=== PATIENT | female | born 1975 | race African-American/Black ===

== ENCOUNTER 2018-03-02 20:09 | Inpatient (IN) ==
[2018-03-02] MEDS ORDERED: Potassium Chlor 10 mEq Premix 10 MEQ/100 ML PIGGYBACK IV.SIG ONE (20:24)
[2018-03-02] MEDS ORDERED: Sod Chloride 0.9% Inj 1,000 ML IV.SIG ONE ×2 (20:26→22:04)
--- NOTE | 2018-03-02 21:06 | CT ---
EXAM DATE: 03/02/2018 8:58 PM EDT AGE/SEX: 42 years / Female INDICATIONS: Seizure with fall. CLINICAL DATA: This is the patient's initial encounter. Patient reports that signs and symptoms have been present for 1 day and indicates a pain score of 0/10. MEDICAL/SURGICAL HISTORY: . Seizures None. RADIATION DOSE: 41.51 CTDI (mGy) COMPARISON: No prior exams available for comparison. TECHNIQUE: CT of the head without contrast. Using automated exposure control and adjustment of the mA and/or kV according to patient size, radiation dose was kept as low as reasonably achievable to ob tain optimal diagnostic quality images. DICOM format image data is available electronically for revi ew and comparison. FINDINGS: Cerebrum: The ventricles are normal for age. No evidence of midline shift, mass lesion, hemorrhage or acute infarction. No extraaxial fluid collections are seen. Posterior Fossa: The cerebellum and brainstem are intact. The 4th ventricle is midline. The cerebe llopontine angle is unremarkable. Extracranial: The visualized portion of the orbits is intact. Skull: The calvaria is intact. No evidence of skull fracture. CONCLUSION: 1. Negative noncontrast CT brain. . Electronically signed by: Shan Bush MD 03/02/2018 9:05 PM EDT
--- NOTE | 2018-03-02 21:08 | CT ---
EXAM DATE: 03/02/2018 8:59 PM EDT AGE/SEX: 42 years / Female INDICATIONS: Seizure with fall. CLINICAL DATA: This is the patient's initial encounter. Patient reports that signs and symptoms have been present for 1 day and indicates a pain score of 0/10. MEDICAL/SURGICAL HISTORY: . Seizures None. RADIATION DOSE: 31.68 CTDI (mGy) COMPARISON: No prior exams available for comparison. TECHNIQUE: Contiguous axial images were obtained using helical multirow detector technique. The vol umetric data was post-processed with multiplanar reconstruction in oblique axial, sagittal, and coron al planes. Using automated exposure control and adjustment of the mA and/or kV according to patient s ize, radiation dose was kept as low as reasonably achievable to obtain optimal diagnostic quality dafne ges. DICOM format image data is available electronically for review and comparison. FINDINGS: There is straightening of the cervical lordosis. Vertebral body height is maintained. The atlantoaxia l articulation is intact. The posterior elements are in normal alignment without evidence of locked o r perched facets. Nonbridging anterior paravertebral ossification is present at C6-7. C2-3: No fracture seen. The neural foramina are patent. C3-4: No fracture seen. The neural foramina are patent. C4-5: No fracture seen. The neural foramina are patent. C5-6: No fracture seen. The neural foramina are patent. C6-7: No fracture seen. The neural foramina are patent. C7-T1: No fracture seen. The neural foramina are patent. CONCLUSION: 1. No evidence of compression deformity or spondylolisthesis. Electronically signed by: Shan Bush MD 03/02/2018 9:07 PM EDT
--- NOTE | 2018-03-02 21:19 | ED ---
HPI General Chief Complaint: Seizure Stated Complaint: Medical Time Seen by Provider: 03/02/18 20:18 Source: RN notes reviewed Mode of arrival: wheelchair Limitations: altered mental status History of Present Illness HPI Narrative: The patient is a 42-year-old female with history of seizures noncompliant with medications. Patient was seen here earlier today for seizure and refused workup left AMA. She never really made it out of the ED. Patient had another seizure in between the double doors injuring her face. She was placed in c-collar backboard and wheeled to C-pod. Was alert at time of examination but slightly confused. Not seizing. Related Data Home Medications Medication Instructions Recorded Confirmed Unable to Obtain Home Meds 03/02/18 03/02/18 Allergies Allergy/AdvReac Type Severity Reaction Status Date / Time No Known Allergies Allergy Unverified 03/02/18 18:30 Review of Systems ROS Unobtainable All other systems reviewed negative except as stated in HPI Constitutional Denies fever(s) Eyes Denies change in vision ENT Denies headache(s) and Denies nasal congestion Cardiovascular Denies chest pain Respiratory Denies dyspnea Gastrointestinal Denies abdominal pain Genitourinary Denies difficulty voiding Musculoskeletal Denies myalgias Integumentary/Breasts Denies rash Comments: Facial abrasions. One below the right nare. One linear abrasion below the right eyelid noted affecting globe. And one her forehead paramedian. No active bleeding. Neurologic Reports syncope, Denies headache(s) and Reports seizure-like activity Psychiatric Denies depression Endocrine Denies polyuria Hematologic/Lymphatic Denies easy bruising PMF Medical History Medical History Seizure (Acute) Surgical History Surgical History No history of previous surgery (Acute) Social History Social History Substance History: No History of Abuse Second Hand Smoke Exposure: No Smoking Status: Never smoker How Often Do You Have a Drink Containing Alcohol: 2 to 4 times a month Recent Travel in [facility] within the Last 8 Weeks: No Recent Out of Country Travel within the Last 8 Weeks: No Immunization History Tetanus Immunization: >5 Years Exam [facility] Head: normocephalic and signs of trauma Nose: no nasal discharge and no epistaxis Mouth: moist mucous membranes Other: C-collar in place. Abrasions on right infraorbital, below the right nares Paramedial forehead. Eyes Sclera: normal sclerae Pupils: PERRL Neck Neck: trachea midline and no JVD Resp Effort & Inspection: no use of accessory muscles Auscultation: clear to auscultation bilaterally Cardio Rate: regular rate Rhythm: regular rhythm Heart Sounds: no murmurs GI Inspection: non-distended Palpation: soft, no hepatosplenomegaly and nontender Back/Spine/Pelvis Back: no CVA tenderness Cervical Spine: No cervical ROM normal (straitened) Thoracic/Lumbar Spine: thoracic and lumbar spine normal to inspection Pelvis: no pain with anterior-posterior compression Skin General: skin not dry (warm) Other: facial abrasions discussed above Neuro General: alert and awake Cranial Nerves: other Speech: speech normal Motor: no movement abnormalities noted Extrem General: normal to inspection, no clubbing, no cyanosis and no edema Psych Mood: congruent mood Affect: normal affect Judgment: judgment good Course Reevaluation(s) Reevaluation #1: Patient states she feels much better this time she is alert and oriented. She responds to questions appropriately she is noncompliant with medications and does not remember what she takes. Time: 21:18 Reevaluation #2: Cervical spine cleared radiographically and clinically. CT was negative. No pain to palpation. Due to the abnormal EKG we will obtain troponin. Likely secondary to hypokalemia. The patient denies any chest pain or shortness of breath. Time: 22:18 Initial Documented Vital Signs Temperature 98 F 03/02/18 20:10 Pulse Rate 110 H 03/02/18 20:10 Respiratory Rate 16 03/02/18 20:10 Blood Pressure 160/119 H 03/02/18 20:10 Pulse Oximetry 100 03/02/18 20:10 Last Documented Vital Signs Temperature 98 F 03/02/18 20:10 Pulse Rate 96 H 03/02/18 23:12 Respiratory Rate 14 03/02/18 23:12 Blood Pressure 129/63 03/02/18 23:12 Pulse Oximetry 100 03/02/18 23:12 Critical Care Time Critical Care Time: Yes Total Critical Care Time: 30 Attestation: Aggregate critical care time was 30 minutes. Time to perform other separately billable procedures was not included in the critical care time. My time did not include minutes spent treating any other patients simultaneously or on activities that did not directly contribute to the patient's treatment. The services I provided to this patient were to treat and/or prevent clinically significant deterioration that could result in: permanent disability, neurologic deficits, cardiac dysrrhytmia I provided critical care services requiring my management, as noted below: Chart data review, documentation time, medication orders and management, vital sign assessments/reviewing monitor data, ordering and reviewing lab tests, ordering and interpreting/reviewing x-rays and diagnostic studies, care of the patient and discussion of the patient with the admitting physicians. Medical Decision Making MDM Narrative Medical decision making narrative: Patient with hypokalemia initially as per previous physician report started on potassium at point of care. We will also give her 500 mg of IV Keppra. Patient with recurrent seizures. Started on Keppra prophylactically. Potassium 2.8 also noted and was started replacement in the ED with IV and p.o. Hemodynamically stable. Cervical spine and CT head were negative for acute injuries. She does have a straightening of cervical lordosis from her injury. Hemodynamically stable no focal neurologic deficits. Abnormal EKG without any signs of acute ischemia. Tachycardia did improve with bolus fluids as well as potassium replacement. Troponin negative no chest pain chest x-ray unremarkable. No signs of infectious process. Lab Data Lab results reviewed: Yes I reviewed the patient's lab results. Result diagrams: 03/02/18 22:20 03/02/18 22:20 Lab Results 03/02/18 03/02/18 03/02/18 Range/Units 20:13 22:20 22:20 WBC 10.3 (4.0-11.0) th/mm3 RBC 4.50 (4.00-5.30) mil/mm3 Hgb 11.1 L (11.6-15.3) gm/dL Hct 34.0 L (35.0-46.0) % MCV 75.5 L (80.0-100.0) fL MCH 24.6 L (27.0-34.0) pg MCHC 32.5 (32.0-36.0) % RDW 22.2 H (11.6-17.2) % Plt Count 208 (150-450) th/mm3 MPV 9.6 (7.0-11.0) fL Neut % (Auto) 91.7 H (16.0-70.0) % Lymph % (Auto) 4.9 L (9.0-44.0) % [place] % (Auto) 3.1 (0.0-8.0) % Eos % (Auto) 0.0 (0.0-4.0) % Baso % (Auto) 0.3 (0.0-2.0) % Neut # (Auto) 9.4 H (1.8-7.7) th/mm3 Lymph # (Auto) 0.5 L (1.0-4.8) th/mm3 [place] # (Auto) 0.3 (0.0-0.9) th/mm3 Eos # (Auto) 0.0 (0.0-0.4) th/mm3 Baso # (Auto) 0.0 (0.0-0.2) th/mm3 WBC Differential . Differential Comment Auto diff final Sodium 136 (136-145) meq/L Potassium 2.8 L* (3.5-5.1) meq/L Chloride 95 L (98-107) meq/L Carbon Dioxide 28.1 (21.0-32.0) meq/L Anion Gap 13 (5-15) meq/L BUN 10 (7-18) mg/dL Creatinine 1.15 H (0.50-1.00) mg/dL Estimated GFR 62 L (>89) mL/min POC Glucose 167 H (68-110) mg/dl Random Glucose 112 H (74-106) mg/dL Calcium 7.7 L (8.5-10.1) mg/dL Troponin I Less than 0.02 L (0.02-0.05) ng/mL Imaging Data Radiologist's impression: Cervical Spine CT 03/02/18 20:24 CONCLUSION: 1. No evidence of compression deformity or spondylolisthesis. Chest X-Ray 03/02/18 20:24 CONCLUSION: The lungs are clear. Head CT 03/02/18 20:24 CONCLUSION: 1. Negative noncontrast CT brain. . Face CT 03/02/18 20:26 CONCLUSION: 1. No facial bone fracture seen. ECG Data Attestation: I personally reviewed and interpreted this ECG as follows: Interpretation: EKG obtained at 2154 on March 02 revealed junctional tachycardia with a rate of [address]-T wave abnormalities. Nonspecific T-wave abnormalities. Inverted T waves on V2. Q wave in inferior leads. Discharge Plan Discharge Disposition Patient Disposition: 30 Still Patient Discharge Condition Condition: Fair Discharge Details Diagnosis: Intractable seizure disorder, Acute hypokalemia, Contusion of face, Abrasion of face Physicians Team ED Provider: Raghavendra East Primary Care Provider: Primary Care Shaista Colon Attending Provider: Cande Brown Discharge Interventions Interventions: Vital Signs Last Done: 03/02/18 23:12 Status ED Status: Admitted Patient
--- NOTE | 2018-03-02 21:23 | XR ---
EXAM DATE: 03/02/2018 9:09 PM EDT AGE/SEX: 42 years / Female INDICATIONS: Trauma. Seizure. CLINICAL DATA: This is the patient's initial encounter. Patient reports that signs and symptoms have been present for 1 day and indicates a pain score of 0/10. MEDICAL/SURGICAL HISTORY: . Seizures. None. COMPARISON: No prior exams available for comparison. FINDINGS: A single AP view of the chest demonstrates the lungs to be symmetrically aerated without evidence of mass, infiltrate or effusion. The cardiomediastinal contours are unremarkable. Osseous structures a re intact. CONCLUSION: The lungs are clear. Electronically signed by: Shan Bush MD 03/02/2018 9:22 PM EDT
--- NOTE | 2018-03-02 21:23 | CT ---
EXAM DATE: 03/02/2018 8:59 PM EDT AGE/SEX: 42 years / Female INDICATIONS: Seizure with fall. CLINICAL DATA: This is the patient's initial encounter. Patient reports that signs and symptoms have been present for 1 day and indicates a pain score of 0/10. MEDICAL/SURGICAL HISTORY: . Seizures None. RADIATION DOSE: 64.19 CTDI (mGy) COMPARISON: No prior exams available for comparison. TECHNIQUE: Contiguous images in the axial and coronal planes were obtained using helical multirow de tector technique. Using automated exposure control and adjustment of the mA and/or kV according to p atient size, radiation dose was kept as low as reasonably achievable to obtain optimal diagnostic chelsie lity images. DICOM format image data is available electronically for review and comparison. FINDINGS: Orbits: The orbital and infraorbital osseous structures are intact. The retroconal structures have a normal configuration. No radiopaque foreign bodies are seen. Nasal Bone: The nasal bone and maxillary spine are intact. Zygomatic Arches: Symmetric without evidence of fracture. Sinuses: There is minimal mucosal thickening in the lower left maxillary sinus. Bilateral cecilia bul losa. Nasal Cavity: The nasal septum is intact and midline. The lacrimal ducts are intact. Soft Tissues: No radiopaque foreign bodies seen. No soft-tissue swelling is seen. Intracranial: No intracranial air seen. Cribriform Plate: Grossly intact. CONCLUSION: 1. No facial bone fracture seen. Electronically signed by: Shan Bush MD 03/02/2018 9:22 PM EDT
[2018-03-02] MEDS ORDERED: levETIRAcetam 500mg/100mL Inj 100 ML IV.SIG ONE (22:26)
[2018-03-02 23:04] LABS: Baso % (Auto) 0.3 % (0.0-2.0); Hemoglobin 11.1 gm/dL (11.6-15.3); Lymph # (Auto) 0.5 th/mm3 (1.0-4.8); Lymph % (Auto) 4.9 % (9.0-44.0); Mean Corpuscular HGB Conc 32.5 % (32.0-36.0); Mean Corpuscular Hemoglobin 24.6 pg (27.0-34.0); Mean Corpuscular Volume 75.5 fL (80.0-100.0); Mean Platelet Volume 9.6 fL (7.0-11.0); Mono # (Auto) 0.3 th/mm3 (0.0-0.9); Mono % (Auto) 3.1 % (0.0-8.0); Neut # (Auto) 9.4 th/mm3 (1.8-7.7); Neut % (Auto) 91.7 % (16.0-70.0); Platelet Count 208 th/mm3 (150-450); Red Cell Distribution Width 22.2 % (11.6-17.2); White Blood Count 10.3 th/mm3 (4.0-11.0)
[2018-03-02 23:31] LABS: Anion Gap 13 meq/L (5-15); Blood Urea Nitrogen 10 mg/dL (7-18); Calcium 7.7 mg/dL (8.5-10.1); Carbon Dioxide 28.1 meq/L (21.0-32.0); Chloride 95 meq/L (98-107); Glomerular Filtration Rate 62 mL/min (>89); Glucose,Random 112 mg/dL (74-106); Sodium 136 meq/L (136-145)
[2018-03-02 23:34] LABS: Potassium 2.8 meq/L (3.5-5.1)
[2018-03-03] MEDS ORDERED: Bisacodyl 10 MG Supp RECTAL PRN (00:42)
[2018-03-03] MEDS ORDERED: Temazepam 15 MG Capsule PO PRN (00:42)
[2018-03-03] MEDS ORDERED: Acetaminophen 325 MG Tablet PO PRN (00:42)
--- NOTE | 2018-03-03 02:59 | P.HPIM ---
History of Present Illness Primary Care Physician: No Primary Care Physician History of Present Illness: This is a 42-year-old female with a PMH of Seizure Disorder and Noncompliance who presented to the ER earlier today after seizure. Prior to having completed work up, pt's friend arrived at which time pt decided to LEAVE AMA. While walking out of the ER, pt had subsequent seizure and was brought back in from Triage. States she takes "something with a P", but is non-compliant because "I forget". Notes seizure activity 1-2 times per month. Does not follow w/ Neurology. BP 160/119, HR 110, O2 sat 100% on RA, Afebrile. CBC essentially unremarkable. K+ 2.8. Creatinine 1.15. CT Head with no acute findings. CT C- spine negative for fracture. CT Maxillofacial with no facial bone fracture. CXR negative. - Diagnosis (1) Seizure (2) Non-compliance (3) Hypokalemia Inpatient Certification: I certify that the inpatient services were ordered in accordance with Medicare regulations governing the order. This includes certification that hospital inpatient services are reasonable and necessary and in the case of services not specified as inpatient-only under 42 CFR 419.22(n), that they are appropriately provided as inpatient services in accordance to with the 2-midnight benchmark under 43 CFR 412.3(e) Estimated Total Length of Stay (Days): 2 Plans for Post Hospital Care: Home Review of Systems All other systems reviewed negative except as stated in HPI [facility] - History History Provided By: Medical Record - Medical History Medical History: Medical History (Last Reviewed 03/03/18 @ 01:08 by Raghavenrda East DO) Seizure - Surgical History Surgical History: Surgical History (Last Reviewed 03/03/18 @ 01:00 by Raghavendra East DO) No history of previous surgery - Tobacco History Second Hand Smoke Exposure: No Smoking Status: Never smoker - Alcohol History How Often Do You Have a Drink Containing Alcohol: 2 to 4 times a month - Substance Use History Substance History: No History of Abuse - Travel History Recent Travel in the [place] Within the Last 8 Weeks: No Recent Travel Out of the Country Within the Last 8 Weeks: No - Immunization History Tetanus Immunization: >5 Years Medications and Allergies Active Medications: Active Medications Acetaminophen (Tylenol) 650 mg PO Q4H PRN PRN Reason: Temp > 100.4 Al Hydroxide/Mg Hydroxide (Milk Of Magnesia Liq) 30 ml PO Q12H PRN PRN Reason: Mild Constipation Bisacodyl (Dulcolax Supp) 10 mg RECTAL DAILY PRN PRN Reason: SEVERE CONSITIPATION Levetiracetam (Keppra 500 Mg/100 Ml Premix) 100 mls @ 400 mls/hr IV.SIG Q12H SERA Sodium Chloride (Ns Inj) 1,000 mls @ 100 mls/hr IV.CONT .Q10H SERA Lactulose (Lactulose Liq) 30 ml PO DAILY PRN PRN Reason: SEVERE CONSITIPATION Lorazepam (Ativan Inj) 1 mg IV.PUSH Q5M PRN PRN Reason: SEIZURE Ondansetron HCl (Zofran Inj) 4 mg IV.PUSH Q6H PRN PRN Reason: NAUSEA OR VOMITING Senna/Docusate Sodium (Lary-Colace) 1 tab PO BID SERA Sennosides (Senokot) 17.2 mg PO Q12H PRN PRN Reason: Moderate Constipation Temazepam (Restoril) 15 mg PO HS PRN PRN Reason: INSOMNIA Allergies Allergy/AdvReac Type Severity Reaction Status Date / Time No Known Allergies Allergy Unverified 03/02/18 18:30 Home Medications Medication Instructions Recorded Confirmed Type Unable to Obtain Home Meds 03/02/18 03/02/18 History Exam Vital signs: Vital Signs 03/02/18 20:10 03/02/18 20:13 03/02/18 23:12 Temperature 98 F Pulse Rate 110 H 88 96 H Respiratory Rate 16 14 14 Blood Pressure 160/119 H 140/90 129/63 Pulse Oximetry 100 100 100 03/03/18 02:07 Temperature Pulse Rate 72 Respiratory Rate 16 Blood Pressure 128/78 Pulse Oximetry Intake & Output 03/02/18 03/02/18 03/03/18 06:59 18:59 06:59 Weight 127.006 kg Other: # Voids 2 Narrative: PE: GENERAL: Middle-aged black female in no acute distress. HEENT: PERRLA, EOMI. No scleral icterus or conjunctival pallor. No lid lag or facial droop. Periorbital superficial laceration, some facial bruising CARDIOVASCULAR: Regular rate and rhythm. No obvious murmurs to auscultation. No chest tenderness to palpation. RESPIRATORY: No obvious rhonchi or wheezing. Clear to auscultation. Breath sounds equal bilaterally. GASTROINTESTINAL: Abdomen soft, non-tender, nondistended. BS normal. MUSCULOSKELETAL: Extremities without clubbing, cyanosis, or edema. No obvious deformities. NEUROLOGICAL: Awake, alert and oriented x4. No focal neurologic deficits. Moving both upper and lower extremities spontaneously. Results - Labs CBC & Chem 7: 03/02/18 22:20 03/02/18 22:20 Labs: Short CBC 03/02/18 Range/Units 22:20 WBC 10.3 (4.0-11.0) th/mm3 Hgb 11.1 L (11.6-15.3) gm/dL Hct 34.0 L (35.0-46.0) % Plt Count 208 (150-450) th/mm3 BMP 03/02/18 22:20 Sodium 136 Potassium 2.8 L* Chloride 95 L Carbon Dioxide 28.1 BUN 10 Creatinine 1.15 H Calcium 7.7 L Cardiac Enzymes 03/02/18 Range/Units 22:20 Troponin I Less than 0.02 L (0.02-0.05) ng/mL - Imaging Impressions Cervical Spine CT 03/02/18 20:24 CONCLUSION: 1. No evidence of compression deformity or spondylolisthesis. Chest X-Ray 03/02/18 20:24 CONCLUSION: The lungs are clear. Head CT 03/02/18 20:24 CONCLUSION: 1. Negative noncontrast CT brain. . Face CT 03/02/18 20:26 CONCLUSION: 1. No facial bone fracture seen. Caprini VTE Risk Assessment Caprini VTE Risk Assessment: No/Low Risk (score <= 1) Caprini Risk Assessment Model: Point Value = 1 Point Value = 2 Point Value = 3 Point Value = 5 Age 41-60 Minor surgery BMI > 25 kg/m2 Swollen legs Varicose veins or History of unexplained or recurrent spontaneous Oral contraceptives or hormone replacement Sepsis (< 1 month) Serious lung disease, including pneumonia (< 1 month) Abnormal pulmonary function Acute myocardial infarction Congestive heart failure (< 1 month) History of inflammatory bowel disease Medical patient at bed rest Age 61-74 Arthroscopic surgery Major open surgery (> 45 min) Laparoscopic surgery (> 45 min) Malignancy Confined to bed (> 72 hours) Immobilizing plaster cast Central venous access Age >= 75 History of VTE Family history of VTE Factor V Leiden Prothrombin [id number] Lupus anticoagulant Anticardiolipin antibodies Elevated serum homocysteine Heparin-induced thrombocytopenia Other congenital or acquired thrombophilia Stroke (< 1 month) Elective arthroplasty Hip, pelvis, or leg fracture Acute spinal cord injury (< 1 month) Prophylaxis Regimen: Total Risk Factor Score Risk Level Prophylaxis Regimen 0-1 Low Early ambulation 2 Moderate Order ONE of the following: *Sequential Compression Device (SCD) *Heparin 5000 units SQ BID 3-4 Higher Order ONE of the following medications: *Heparin 5000 units SQ TID *Enoxaparin/Lovenox 40 mg SQ daily (WT < 150 kg, CrCl > 30 mL/min) *Enoxaparin/Lovenox 30 mg SQ daily (WT < 150 kg, CrCl > 10-29 mL/min) *Enoxaparin/Lovenox 30 mg SQ BID (WT < 150 kg, CrCl > 30 mL/min) AND/OR *Sequential Compression Device (SCD) 5 or more Highest Order ONE of the following medications: *Heparin 5000 units SQ TID (Preferred with Epidurals) *Enoxaparin/Lovenox 40 mg SQ daily (WT < 150 kg, CrCl > 30 mL/min) *Enoxaparin/Lovenox 30 mg SQ daily (WT < 150 kg, CrCl > 10-29 mL/min) *Enoxaparin/Lovenox 30 mg SQ BID (WT < 150 kg, CrCl > 30 mL/min) AND *Sequential Compression Device (SCD) Assessment and Plan - Assessment (1) Seizure Code(s): R56.9 - Unspecified convulsions Status: Acute (2) Non-compliance Code(s): Z91.19 - Patient's noncompliance with other medical treatment and regimen Status: Acute (3) Hypokalemia Code(s): E87.6 - Hypokalemia Status: Acute - Plan A/P: 1. Seizure: h/o Seizure Disorder, non-compliant w/ meds, seen in ER earlier today after seizure however LEFT AMA, had subsequent seizure while walking out of the ER and was brought back. CT Head/C-Spine/Maxillofacial w/ no acute fractures. Seizure Precautions, Ativan prn, IVF for hydration. Consult Neurology for further recommendations. Start Keppra. 2. Non-Compliance: pt states "I forget" w/ regards to taking medications, stressed importance of compliance. 3. Hypokalemia: K+ 2.8, s/p replacement, will recheck and replace as needed. 4. DVT Prophylaxis: SCD/Teds 5. Social work for d/c planning as needed. 6. Case discussed w/ ER physician at length, labs/records/imaging reviewed by me.
[2018-03-03] MEDS: Sod Chloride 0.9% Inj 1,000 ML IV.CONT SCH ×2 (03:02→10:04)
[2018-03-03] MEDS ORDERED: levETIRAcetam 500mg/100mL Inj 100 ML IV.SIG SCH (09:00)
[2018-03-03] MEDS ORDERED: Senna/Docusate Sodium 8.6/50 MG Tablet PO SCH (09:00)
[2018-03-03] MEDS: Potassium Chlor 20 mEq Premix 20 MEQ/100 ML PIGGYBACK IV.SIG SCH ×2 (09:31→12:23)
[2018-03-03 09:59] VITALS: O2SAT 100
[2018-03-03] MEDS ORDERED: Phenytoin Sodium 100 MG Capsule PO ONE (10:23)
--- NOTE | 2018-03-03 10:35 | P.CONNEU ---
History of Present Illness Service: Neurology Primary Care Provider: No Primary Care Physician History of Present Illness: There is a pleasant 42-year-old female from [place] visiting a friend with a known history of seizures that started June 2017. She supposed to be taking phenytoin but admits to noncompliance with medication. She is admitted for breakthrough seizure. No events overnight was put on Keppra feels well and wants to leave and go home. She is followed by primary care physician in the [place] area. No clear etiology found for seizures no family history of seizures. She states that she will get an aura of dizziness prior to the event. Denies any fever chills night sweats focal weakness visual loss headache or neck pain. Review of Systems All other systems reviewed negative except as stated in HPI [facility] - History History Provided By: Medical Record - Medical History Medical History: Medical History (Last Reviewed 03/03/18 @ 01:08 by Raghavendra East DO) Seizure - Surgical History Surgical History: Surgical History (Last Reviewed 03/03/18 @ 01:00 by Raghavendra East DO) No history of previous surgery - Tobacco History Second Hand Smoke Exposure: No Smoking Status: Never smoker - Alcohol History How Often Do You Have a Drink Containing Alcohol: 2 to 4 times a month - Substance Use History Substance History: No History of Abuse - Travel History Recent Travel in the [place] Within the Last 8 Weeks: No Recent Travel Out of the Country Within the Last 8 Weeks: No - Immunization History Tetanus Immunization: >5 Years Medications and Allergies Active Medications: Active Medications Acetaminophen (Tylenol) 650 mg PO Q4H PRN PRN Reason: Temp > 100.4 Al Hydroxide/Mg Hydroxide (Milk Of Magnmatt Liq) 30 ml PO Q12H PRN PRN Reason: Mild Constipation Bisacodyl (Dulcolax Supp) 10 mg RECTAL DAILY PRN PRN Reason: SEVERE CONSITIPATION Levetiracetam (Keppra 500 Mg/100 Ml Premix) 100 mls @ 400 mls/hr IV.SIG Q12H [facility] Last Admin: 03/03/18 10:02 Dose: 400 mls/hr Sodium Chloride (Ns Inj) 1,000 mls @ 100 mls/hr IV.CONT .Q10H [facility] Last Admin: 03/03/18 10:04 Dose: 100 mls/hr Potassium Chloride (Kcl 20 Meq Premix Inj) 20 meq in 100 mls @ 50 mls/hr IV.SIG Q2H [facility] Stop: 03/03/18 12:59 Last Admin: 03/03/18 09:31 Dose: 50 mls/hr Lactulose (Lactulose Liq) 30 ml PO DAILY PRN PRN Reason: SEVERE CONSITIPATION Lorazepam (Ativan Inj) 1 mg IV.PUSH Q5M PRN PRN Reason: SEIZURE Ondansetron HCl (Zofran Inj) 4 mg IV.PUSH Q6H PRN PRN Reason: NAUSEA OR VOMITING Phenytoin Sodium (Dilantin) 100 mg PO TID [facility] Senna/Docusate Sodium (Lary-Colace) 1 tab PO BID [facility] Last Admin: 03/03/18 09:31 Dose: Not Given Sennosides (Senokot) 17.2 mg PO Q12H PRN PRN Reason: Moderate Constipation Temazepam (Restoril) 15 mg PO HS PRN PRN Reason: INSOMNIA Allergies Allergy/AdvReac Type Severity Reaction Status Date / Time No Known Allergies Allergy Unverified 03/02/18 18:30 Home Medications Medication Instructions Recorded Confirmed Type Unable to Obtain Home Meds 03/02/18 03/02/18 History Exam Vital signs: Vital Signs 03/02/18 20:10 03/02/18 20:13 03/02/18 23:12 Temperature 98 F Pulse Rate 110 H 88 96 H Respiratory Rate 16 14 14 Blood Pressure 160/119 H 140/90 129/63 Pulse Oximetry 100 100 100 03/03/18 02:07 03/03/18 03:20 03/03/18 07:13 Temperature 98.1 F 97.6 F Pulse Rate 72 92 H 93 H Respiratory Rate 16 18 18 Blood Pressure 128/78 158/83 H 167/78 H Pulse Oximetry 98 96 03/03/18 08:00 Temperature 98.3 F Pulse Rate 87 Respiratory Rate 14 Blood Pressure 169/101 H Pulse Oximetry 100 Intake & Output 03/02/18 03/03/18 03/03/18 18:59 06:59 18:59 Intake Total 1000 / 1000 Balance 1000 / 1000 Weight 127.006 kg 127.006 kg Intake: IV 1000 / 1000 NS Inj 1,000 ML @ 100 mls/hr IV 1000 / 1000 .CONT .Q10H [facility] Rx#:[id number] Other: # Voids 2 Narrative: Awake alert oriented 3 pleasant articulate no aphasia Movements intact tongue midline no pronator drift no neglect reflex symmetric gait not assessed secondary fall risk although she says she has been ambulating without difficulty Results - Labs CBC & Chem 7: 03/02/18 22:20 03/02/18 22:20 Labs: Laboratory Results - last 24 hr 03/02/18 03/02/18 03/02/18 20:13 22:20 22:20 WBC 10.3 RBC 4.50 Hgb 11.1 L Hct 34.0 L MCV 75.5 L MCH 24.6 L MCHC 32.5 RDW 22.2 H Plt Count 208 MPV 9.6 Neut % (Auto) 91.7 H Lymph % (Auto) 4.9 L Bull[place] % (Auto) 3.1 Eos % (Auto) 0.0 Baso % (Auto) 0.3 Neut # (Auto) 9.4 H Lymph # (Auto) 0.5 L [place] # (Auto) 0.3 Eos # (Auto) 0.0 Baso # (Auto) 0.0 WBC Differential . Differential Comment Auto diff final Sodium 136 Potassium 2.8 L* Chloride 95 L Carbon Dioxide 28.1 Anion Gap 13 BUN 10 Creatinine 1.15 H Estimated GFR 62 L POC Glucose 167 H Random Glucose 112 H Calcium 7.7 L Troponin I Less than 0.02 L 03/03/18 07:55 WBC RBC Hgb Hct MCV MCH MCHC RDW Plt Count MPV Neut % (Auto) Lymph % (Auto) [place] % (Auto) Eos % (Auto) Baso % (Auto) Neut # (Auto) Lymph # (Auto) [place] # (Auto) Eos # (Auto) Baso # (Auto) WBC Differential Differential Comment Sodium Potassium Chloride Carbon Dioxide Anion Gap BUN Creatinine Estimated GFR POC Glucose Random Glucose Calcium Troponin I Less than 0.02 L - Imaging Impressions Cervical Spine CT 03/02/18 20:24 CONCLUSION: 1. No evidence of compression deformity or spondylolisthesis. Chest X-Ray 03/02/18 20:24 CONCLUSION: The lungs are clear. Head CT 03/02/18 20:24 CONCLUSION: 1. Negative noncontrast CT brain. . Face CT 03/02/18 20:26 CONCLUSION: 1. No facial bone fracture seen. Review/Management - Diagnosis (1) Seizure Code(s): R56.9 - Unspecified convulsions Status: Acute Current Visit: Yes (2) Non-compliance Code(s): Z91.19 - Patient's noncompliance with other medical treatment and regimen Status: Acute Current Visit: Yes - Review/Management Plan: Possible idiopathic epilepsy Possible temporal lobe origin Breakthrough seizure secondary to noncompliance Recommendations Dilantin load and prescription for Dilantin Continue Keppra for now Keppra could be DC'd once her Keppra lab level is therapeutic done by her physician in [place] Compliance strongly encouraged the patient No driving swimming or operating heavy machinery or dangerous to come in fully 6 months of being seizure spell free Discussed with medical Patient agrees with plan noted above
[2018-03-03 12:27] VITALS: BP 180/98; PULSE 84; RESP 16; TEMP 98.9
[2018-03-03] MEDS ORDERED: Phenytoin Sodium 100 MG Capsule PO SCH (13:00)
--- NOTE | 2018-03-03 16:15 | ECG ---
Date Performed: 03/02/2018 Time Performed: 21:54:40 PTAGE: 42 years EKG: BORDERLINE SINUS TACHYCARDIA NONSPECIFIC T-WAVE CHANGE QT INTERVAL PROLONGED FOR RATE CLINI ALEC CORRELATION RECOMMENDED. ABNORMAL ECG NO PREVIOUS TRACING DOCTOR: Jeovanny Grimaldo Interpretating Date/Time 03/03/2018 16:14:08
--- NOTE | 2018-03-03 20:29 | MG ---
cc: Wilson Agustin MD, Mandeep MD EEG NUMBER [id number] 6-8 Hz posterior rhythm, 20-40 microvolts. Good anterior to posterior gradient. Increased fast frequencies noted. Slow eye movements background slowing with transition into drowsy state. Continuous at times myogenic artifact. Reduced driving at the beginning of the recording during photic stimulation. Single lead EKG showing sinus rhythm. INTERPRETATION: Normal awake sleep electroencephalogram. Some myogenic artifact. No epileptic activity appreciated. Clinical correlation. MD PONCHO Jones/ , 08:06 PM , 08:27 PM
== END 2018-03-03 15:37 | disposition home or self-care (01) ==
LOC: NEPC 20:09 → NEDA 03-03 00:39 → N05 03-03 02:51
PROVIDERS: ADMIT Hospitalist; ATTEND Hospitalist